=== PATIENT | male | born 1960 | race Caucasian/White ===

== ENCOUNTER 2022-11-22 07:55 | Observation (INO) ==
--- NOTE | 2022-11-02 13:31 | PAT Medication Instructions ---
Medication Instructions Date of Service November 02, 2022 Home Medications fluoxetine 40 mg capsule 40 mg PO QAM meloxicam 15 mg tablet 15 mg PO HS omeprazole 20 mg capsule,delayed release 20 mg PO BID trazodone 150 mg tablet 150 mg PO HS Medical Marijuana 1 dose inhalation UD PRN PAIN baclofen 10 mg tablet 10 mg PO TID buspirone 15 mg tablet 15 mg PO BID celecoxib 100 mg capsule (Celebrex) 100 mg PO QAM gabapentin 600 mg tablet 600 mg PO TID ASK your surgeon for instructions meloxicam 15 mg tablet 15 mg PO HS celecoxib 100 mg capsule (Celebrex) 100 mg PO QAM DO NOT take the morning of surgery Medical Marijuana 1 dose inhalation UD PRN PAIN baclofen 10 mg tablet 10 mg PO TID Take morning of surgery With a small sip of water, OTHERWISE NOTHING TO EAT OR DRINK AFTER MIDNIGHT: fluoxetine 40 mg capsule 40 mg PO QAM omeprazole 20 mg capsule,delayed release 20 mg PO BID buspirone 15 mg tablet 15 mg PO BID gabapentin 600 mg tablet 600 mg PO TID Take evening before surgery omeprazole 20 mg capsule,delayed release 20 mg PO BID trazodone 150 mg tablet 150 mg PO HS Medical Marijuana 1 dose inhalation UD PRN PAIN (if needed) baclofen 10 mg tablet 10 mg PO TID buspirone 15 mg tablet 15 mg PO BID gabapentin 600 mg tablet 600 mg PO TID Other Notes If you have any questions please call us at [phone] or [phone] or [phone] or [phone]
--- NOTE | 2022-11-08 11:33 | History & Physical Report ---
Date of Service November 08, 2022 date of surgery: 11/22/22 Procedure: Right Total Knee Arthroplasty Surgeon: Robert Michelle Assessment & Plan (1) Arthritis of right knee: Plan: Patient presented for preop evaluation prior to right total knee replacement. He has failed conservative measures including previous knee arthroscopy x2 and is also had injections including corticosteroid and he believes possible viscosupplementation at this point time is failed conservative measures like to proceed with right total knee replacement. We will see how he progresses in the hospital we discussed possible rehabilitation stay versus home health physical therapy. In the event that he would go home with stay with his family member as he has several large dogs at home, make things difficult if he were to return home otherwise has no other questions or concerns The risks and benefits have been discussed including, but not limited to, risk of infection, nerve injury, stiffness, loss of motion, failure to improve, etc. Reasonable outcomes and options of treatment were discussed. An explanation of appropriate alternatives to the procedure that may be advantageous were discussed and their risks and benefits, as well as the risks and benefits of not proceeding with treatment. I offered to answer any additional inquiries concerning the treatment involved. All the patient's questions were answered. The patient is agreeable, understanding of the treatment plan and alternatives, and wishes to proceed with the treatment plan. History of Present Illness Chief Complaint: Right knee pain Primary Care Provider: Ramona Morris DO He is a pleasant 62-year-old male who presents for preop evaluation prior to his right total knee replacement, he states that he has been having pain in his knee for many years now which is gradually worsened and is now to the point that is affecting his daily activities including walking standing using stairs. Rates his current pain as a 6 out of 10. Has history of knee arthroscopy x2, he is also undergone viscosupplementation he thinks as well as multiple cortisone in jections without any significant improvement. He also uses Celebrex as needed for pain. This point time is failed conservative measures and like to proceed with a right total knee replacement Allergies Allergy/AdvReac Type Severity Reaction Status Date / Time No Known Allergies Allergy Verified 02/18/20 15:19 Home Medications Medication Instructions Recorded Confirmed Type fluoxetine 40 mg capsule 40 mg PO QAM 02/17/20 11/02/22 History meloxicam 15 mg tablet 15 mg PO HS 02/17/20 11/02/22 History omeprazole 20 mg capsule,delayed 20 mg PO BID 02/17/20 11/02/22 History release trazodone 150 mg tablet 150 mg PO HS 02/18/20 11/02/22 History Medical Marijuana 1 dose inhalation UD PRN PAIN 11/02/22 11/02/22 History baclofen 10 mg tablet 10 mg PO TID 11/02/22 11/02/22 History buspirone 15 mg tablet 15 mg PO BID 11/02/22 11/02/22 History celecoxib 100 mg capsule (Celebrex) 100 mg PO QAM 11/02/22 11/02/22 History gabapentin 600 mg tablet 600 mg PO TID 11/02/22 11/02/22 History fluticasone propionate 50 See Rx Instructions .Route .COMPLEX 11/08/22 11/08/22 History mcg/actuation nasal spray,suspension Past Med/Surg History Medical History Anxiety and depression Degenerative disc disease GERD (gastroesophageal reflux disease) Well controlled and stable Hx of thyroid cancer s/p partial thyroidectomy Neuropathy To hands and feet bilaterally Osteoarthritis Spinal stenosis Surgical History H/O knee surgery RT X 2 History of anesthesia reaction WAS TOLD KEPT WAKING UP DURING SURGERY History of arthroscopy of right shoulder History of colonoscopy History of esophagogastroduodenoscopy (EGD) History of surgery on arm LEFT ARM FOR FX (2 SURGERIES/HARDWARE REMOVED) History of tooth extraction Hx of partial thyroidectomy Family History Other No family history of adverse response to anesthesia Social History Smoking Status: Never smoker Second Hand Exposure: Yes ( A CHILD); Hx Alcohol Use: No Hx Substance Use: Yes (HAS MEDICAL MARIJUANA CARD ) Preferred Language: Tajik Diamond Powder Technician Required: No Beliefs That Will Affect Care: None Current Living Situation: Significant Other Current Living Situation Comment: Lives with girlfriend Melida Feels Safe at Home: Yes Assistive Devices: Glasses Review of Systems Review of Systems: All systems reviewed & are unremarkable except as noted in HPI & below Constitutional: no fever, no chills and no sweats Respiratory: no cough and no dyspnea Cardiovascular: no chest pain, no dyspnea and no orthopnea Gastrointestinal: no abdominal pain, no nausea and no vomiting Musculoskeletal: as per Subjective / HPI Physical Exam Physical Exam: HT: 6ft WT: 101.4kg Constitutional: WD/WN, vitals as above no acute distress Respiratory: normal respiratory effort, lungs clear to auscultation no respiratory distress, no labored breathing and does not use accessory muscles Cardiovascular: RRR, no murmur, no edema Gastrointestinal (Abdomen): normal bowel sounds, soft, nontender, no hepatosplenomegaly Musculoskeletal: Knee: + knee abnormal to inspection (RIGHT KNEE:), + deformity (Valgus alignment), + effusion (+1 effusion), + surgical incision, + limited ROM of knee (ROM 0/3/110), + knee ROM with crepitation, + joint line tenderness (medial joint line) and + Mimi's sign positive; no skin erythema, no ecchymosis, no valgus laxity, no varus laxity, anterior drawer test negative, Areli's sign negative and pivot shift test negative Results & Data Results & Data Diagnostic Findings 4 views of the right knee show advanced degenerative changes to the right knee joint tricompartmentally overall valgus alignment has end-stage DJD with joint space narrowing osteophyte formation subchondral sclerosis, he also has cystic changes within the bone in the proximal tibia
--- NOTE | 2022-11-08 13:19 | Anesthesiology Consultation ---
Date of Service November 08, 2022 Assessment & Plan (1) Encounter for pre-operative examination: Chart Review Chart Review: Acceptable Risk for Surgery and Patient NOT seen in Pre Admission Testing - Pt currently scheduled for 23 hour observation- if surgeon/OR feels this particular TKA procedure is appropriate for OPJ- patient is an acceptable risk Per PAT appt on 11/08/22, patient denies any recent travel or large group activities. Pt is vaccinated for Covid. Will leave to surgeon's discretion if preop Covid testing needed. Educated on importance of using Covid precautions one week prior to surgery Patient seen by PCP 11/03/2022 = no major significant changes. Patient is scheduled for right total knee replacement 11/22/2022. Overall patient is doing fairly well other than his ongoing chronic knee and back pain. No major medication changes at this point. Continue follow up with ortho. Follow-up in 1 year. Teaching & Discussion Pre-Anesthesia Teaching/Discussion Notes: Instructed NPO after midnight before surgery,except medications with 15 cc of water. Medication instructions provided according to the PAT guidelines. History Surgery Operation Date: 11/22/22 12:05 Proposed Procedures p Right Total Knee Arthroplasty with Stems and Wedges and Constrained Poly - Robert Michelle DO Height/Weight Height: 6 ft Weight: 101.4 kg Allergies Allergy/AdvReac Type Severity Reaction Status Date / Time No Known Allergies Allergy Verified 02/18/20 15:19 Medications Home Medications Medication Instructions Recorded Confirmed Last Taken fluoxetine 40 mg capsule 40 mg PO QAM 02/17/20 11/02/22 Unknown meloxicam 15 mg tablet 15 mg PO HS 02/17/20 11/02/22 Unknown omeprazole 20 mg capsule,delayed 20 mg PO BID 02/17/20 11/02/22 Unknown release trazodone 150 mg tablet 150 mg PO HS 02/18/20 11/02/22 Unknown Medical Marijuana 1 dose inhalation UD PRN PAIN 11/02/22 11/02/22 Unknown baclofen 10 mg tablet 10 mg PO TID 11/02/22 11/02/22 Unknown buspirone 15 mg tablet 15 mg PO BID 11/02/22 11/02/22 Unknown celecoxib 100 mg capsule (Celebrex) 100 mg PO QAM 11/02/22 11/02/22 Unknown gabapentin 600 mg tablet 600 mg PO TID 11/02/22 11/02/22 Unknown fluticasone propionate 50 See Rx Instructions .Route .COMPLEX 11/08/22 11/08/22 Unknown mcg/actuation nasal spray,suspension Past Medical History Medical History Anxiety and depression Degenerative disc disease GERD (gastroesophageal reflux disease) Well controlled and stable Hx of thyroid cancer s/p partial thyroidectomy Neuropathy To hands and feet bilaterally Osteoarthritis Spinal stenosis Exercise / Class Metabolic Activity III < 4 Walking/Shop/Light housework (one flight of stairs - no chest pain or SOB - goes slow due to back and knee pain ) Past Family History Family History Other No family history of adverse response to anesthesia Past Surgical History Surgical History H/O knee surgery RT X 2 History of anesthesia reaction WAS TOLD KEPT WAKING UP DURING SURGERY History of arthroscopy of right shoulder History of colonoscopy History of esophagogastroduodenoscopy (EGD) History of surgery on arm LEFT ARM FOR FX (2 SURGERIES/HARDWARE REMOVED) History of tooth extraction Hx of partial thyroidectomy Past Anesthesia History No Hx of Anesthesia Complications (with exception to moving during shoulder surgery - patient denies awareness ) and No Family Hx of Anesthesia Complications History of PONV No Hx of PONV and No Hx of Motion Sickness Social History Smoking Status: Never smoker tobacco type: smokeless tobacco Do You Dip or Chew Tobacco: No (QUIT 20+ YEARS AGO) Hx Alcohol Use: No Hx Substance Use: Yes (HAS MEDICAL MARIJUANA CARD ) substance use type: marijuana Review of Systems Hx of snoring - unsure of apnea- no hx of sleep study Patient denies chest pain, shortness of breath at rest, reflux, cough, wheezing, palpitations. No hx of seizures, stroke, ME. No hx of blood clots or blood transfusions Physical Exam Vital Signs VITALS BP 125/83 P 58 TEMP 98.4 SP02 96% RESP 16 Constitutional no acute distress ENMT Mouth: no TMJ clicking Thyromental Distance: > or= 3.5 Finger Breadths (3.5) Mallampati Class: I Broken molars Neck + limited neck extension and + facial hair (advised to shave/trim) Respiratory normal respiratory effort; no respiratory distress Auscultation: lungs clear to auscultation bilaterally; no wheezes Cardiovascular Rate/Rhythm: regular rate and regular rhythm Heart Sounds: no murmur Vessels: no carotid bruit Musculoskeletal Spine: + pain with cervical ROM Extremities: extremities normal to inspection Psychiatric Orientation: alert Lab Results Anesthesia Preop Results Results Anesthesia Widget: WBC 8.99 K/ul (4.8-10.8) 11/08/22 Hgb 13.7 g/dl (14.0-18.0) L 11/08/22 Hct 40.0 % (42.0-52.0) L 11/08/22 Plt 213 K/uL (130-400) 11/08/22 Na 138 mmol/L (136-145) 11/08/22 K 4.5 mmol/L (3.5-5.1) 11/08/22 Cl 105 mmol/L (98-107) 11/08/22 CO2 31 mmol/L (21-32) 11/08/22 BUN 25 mg/dl (6-23) H 11/08/22 Creat 0.93 mg/dl (0.6-1.4) 11/08/22 Glucose Level 90 mg/dl (70-99(Fasting)) 11/08/22 PT 10.9 Seconds (9.0-12.0) 11/08/22 PTT 27.0 Seconds (21.0-31.0) 11/08/22 INR 1.0 (0.9-1.1) 11/08/22 HA1c 5.6 % (4.5-5.6) 11/08/22 Urine Color Yellow 11/08/22 Urine Appearance Clear (Clear) 11/08/22 Urine pH 7.0 (4.5-7.5) 11/08/22 Urine Specific Dewar 1.024 (1.000-1.030) 11/08/22 Urine Protein Negative (Negative) 11/08/22 Urine Glucose (UA) Negative (Negative) 11/08/22 Urine Ketones Negative (Negative) 11/08/22 Urine Blood Negative (Negative) 11/08/22 Urine Nitrite Negative (Negative) 11/08/22 Urine Bilirubin Negative (Negative) 11/08/22 Urine Urobilinogen Negative (Negative) 11/08/22 Urine Leukocyte Esterase Negative (Negative) 11/08/22 Blood Type A Negative 11/08/22 Antibody Screen NEGATIVE 11/08/22 Testing Electrocardiogram Date: 11/08/22 Findings: + SB @ (53bpm ) Otherwise normal EKG per cardio Chest X-Ray Date: 11/08/22 Findings: + NAD FINDINGS: No pneumothorax. No pleural effusions. The heart is normal in size. There is a mildly tortuous thoracic aorta. No focal lung consolidations to suggest a pneumonia. No evidence for pulmonary edema. There are old, healed lef t-sided rib fractures. Mild anterior wedging within the lower thoracic spine vertebral bodies is likely chronic. There is distal resorption/resection of the left clavicle. COVID-19 Risk Screen Screening Information COVID-19 Screen Date: 11/08/22 Exposure 21 Days Family/Household +COVID Last 21 Days: No Exposure 10 Days Any COVID Exposure Last 10 Days: No Symptoms Last 10 Days Experienced COVID Sx Last 10 Days: No + COVID 0-90 Days COVID + in Last 0-90 Days: No Risk Plan COVID Risk Plan: No Risk Identified Patient Education COVID Preop Screening Education Complete: Yes
[~2022-11-22 07:55] MED LIST: ACETAMINOPHEN 500 MG TAB PO SCH; BUPIVACAINE 0.5 % 5 MG/1 ML PF 10ML VIAL ONE; CeleBREX 200 MG CAP PO SCH; DEXAMETHASONE SOD INJ 4 MG/ML VIAL ONE; FAMOTIDINE 20 MG TAB PO SCH; GABAPENTIN 600 MG DOSE PO SCH; LR 500ML BOLUS, THEN 15ML/HR IV SCH; METOCLOPRAMIDE HCL 10 MG TABLET PO SCH; ROPIVACAINE 0.5% 5 MG/ML 30 ML VIAL ONE; ROPIVACAINE 0.5% HCL/PF 150 MG, BUPIVACAINE 0.75% MPF 20 ML, EPINEPHrine 30MG/30ML (OR ... INSTIL SCH; TRANEXAMIC ACID 1,000 MG **IV Intra-op IV SCH; TRANEXAMIC ACID 1,000 MG **IV Pre-op IV SCH; ceFAZolin 2000MG 2,000 MG/15 ML SYR IV SCH; dexAMETHasone 4 MG TAB PO SCH
--- NOTE | 2022-11-22 08:47 | History & Physical Bridge Note ---
Date of Service November 22, 2022 History & Physical Bridge Note I have examined the patient, reviewed the History & Physical and in the interval since the performance of the History & Physical I have noted the following changes of clinical significance: no changes noted
[2022-11-22] MEDS ORDERED: ePHEDrine sulfate 50 MG/ML AMP IV PRN (09:15)
[2022-11-22] MEDS ORDERED: ATROPINE SULFATE 0.1 MG/ML 10ML SYR IV PRN (09:15)
[2022-11-22] MEDS ORDERED: ONDANSETRON INJ 2 MG/ML 2 ML VIAL IV PRN ×2 (09:15→14:55)
[2022-11-22] MEDS ORDERED: HYDROmorphone INJ 2 MG/ML SYR/VIAL IV PRN (09:15)
[2022-11-22] MEDS ORDERED: ONDANSETRON INJ 2 MG/ML 2 ML VIAL ONE (09:27)
[2022-11-22] MEDS ORDERED: LIDOCAINE 2% 2 ML VIAL/AMP(20MG/ML) INFIL ONE (09:27)
[2022-11-22] MEDS ORDERED: PROPOFOL IV EMULSION 10 MG/ML 20 ML VIAL IV ONE ×4 (09:27→13:14)
[2022-11-22] MEDS ORDERED: MIDAZOLAM HCL 1 MG/ML 2ML VIAL ONE ×2 (09:27→11:52)
[2022-11-22] MEDS ORDERED: ORTHO JOINT ANESTHETIC ONE (10:49)
[2022-11-22] MEDS ORDERED: KETAMINE 50 MG/5 ML SYRINGE ONE (11:46)
--- NOTE | 2022-11-22 13:10 | Operative Report ---
Post Operative Report Pre & Post Diagnosis Operation Date: 11/22/22 10:00 Pre-Op Diagnosis: Right knee osteoarthritis. Post-Op Diagnosis: Right knee osteoarthritis. I identified the patient and participated in the time-out.: Yes Procedure Operation Date: 11/22/22 10:00 Actual Procedures p Right Total Knee Arthroplasty utilizing [employer] journey 2 patient matched total knee arthroplasty with a 16 x 100 mm tibial stem femur size 7 tibia size 7 poly 11 mm constrained patella 35 oval (Right) - Robert Michelle DO Surgeon Robert Michelle DO Anthropological Linguist Gavino FONTANA Estimated Blood Loss 5 Findings Consistent with Post-Op Diagnosis Patient presents with severe end-stage DJD with a severe valgus alignment with large subchondral cystic changes osteophytes and valgus alignment with eburnated [id number] tricompartmentally Specimens Bone and cartilage Drains Medium bore Hemovac Anesthesia Type MAC Spinal Regional Complications none Disposition Accompanied Patient To Recovery: No Disposition: Recovery Room Indications Patient presents with severe end-stage tricompartmental DJD of the right knee no response to conservative management with marked malalignment eburnated bone bone loss tibial bone loss significant subchondral cystic changes Description of Procedure After proper prepping and draping of the Right lower extremity anterior midline incision was made over the region of the extensor extensor mechanism after meticulous hemostasis was obtained and maintained in subcutaneous tissues a medial parapatellar incision was made The patella was subluxed lateralward the medial lateral gutter were cleaned from any hypertrophic synovitis and scar tissue of the distal femoral block was placed and the distal femoral osteotomy cut was made subsequently the chamfers anterior and posterior osteotomy cuts were made utilizing the 4-in-1 block the tibia was subsequently subluxed anteriorward medial and ateral meniscal remnants were excised in their entirety remnants of the anterior and posterior cruciate ligaments were excised in their entirety there were large subchondral cystic changes which were cyst were all removed the this necessitates the presence of 100 mm press-fit stem reamed to a size 16 so while preparing the proximal tibia after proper osteotomy cut the proximal tibia was prepared 100 mm x 16 stem was fixed to the final component after trialing and was press-fit tibial stem with a standard journey tibial plateDue to the complex nature of the procedure, the entire surgery was performed with the operational assistance of [PAC Name]. The property management assistant, under direct supervision, was involved in the actual performance of all aspects of the surgical procedure including hemostasis, tissue retraction and incision, instrument management, patient positioning, and wound closure. excellent exposure of the proximal tibia was obtained the tibial osteotomy guide was placed on the proximal tibial osteotomy cut was made once again the knee was irrigated with copious amounts of sterile saline solution the patella was subsequently everted lateralward thickened scar tissue around the patella was removed the patella was subsequently cut utilizing a freehand technique and was drilled prepared for final preparation and placement of patella socially flexion-extension gaps were checked and the equal and symmetric trials were placed to the appropriate femoral and tibial trials with poly-spacer being placed for equal flexion and extension gaps and full range of motion including extension to 0 and flexion to 140 the trial components after having been taken to recovery range of motion was subsequently removed meticulous hemostasis was obtained and maintained subsequently a knee block injection of joint cocktail including ropivacaine 0.5% 150 mg. Bupivacaine 0.5% epinephrine 1-200,030 mL's toradol 30 mg dexamethasone 4 mg ketamine 10 mg clonidine 100 micrograms normal saline solution 30 mg was infiltrated into the soft tissues of the posterior knee medial lateral gutters and periosteal synovium special attention was paid to protect neurovascular structures at all times subsequently trial components having been removed the knee was irrigated with sterile saline solution. debris was removed the proximal tibia was subsequently prepared and was made ready for the placement of the tibial component tibial component was also cemented and tamped into position the femoral component was subsequently placed and cemented in the position the patellar component was subsequently cemented in position because hemostasis once again obtained and maintained wound having been thoroughly irrigated with debridement and debridement lavage was performed as well as a medial parapatellar incision closed with #1 Vicryl in interrupted fashion subcutaneous was closed with #2 Vicryl skin was closed with skin clips. Gavino FONTANA PA-C was necessary for prepping and drapping as well as wound closure of deep fascia Sub cutaneous tissue and skin and was necessary for the case. A sterile compressive dressing was placed patient was taken to recovery in stable condition of report dictated by Miguel Angel I attest to the content of the Intraoperative Record and any orders documented therein. Any exceptions are noted below. I attest to the content of the Intraoperative Record and any orders documented therein. Any exceptions are noted below.
--- NOTE | 2022-11-22 14:07 | XRay Report ---
XR knee RT 1 or 2V routine CLINICAL HISTORY: Surgical Post Op TECHNIQUE: 2 views of the right knee were obtained. Comparison: None available at the time of this dictation. FINDINGS: Patient is status post total knee arthroplasty with expected postsurgical changes including soft tiss ue swelling and subcutaneous emphysema. No periarticular lucency or hardware fracture is seen. IMPRESSION: Expected postoperative appearance status post placement of total knee arthroplasty. ACT 112: Negative or not required by law. Electronically signed by: Saturnino Neff M.D. 11/22/2022 2:05 PM
--- NOTE | 2022-11-22 14:08 | Anesthesiology Progress Note ---
Date of Service November 22, 2022 Anesthesia Post Procedure Vital Signs Vital Signs: Temp Pulse Resp BP Pulse Ox O2 Del Method O2 Flow Rate 11/22/22 13:55 77 20 139/88 92 Room Air 11/22/22 13:45 36.6 C 77 18 130/77 99 Oxymask 5 Pain Intensity Right Knee: Pain Intensity: 2 Transfer of Care Handoff Completed per policy Notes Mental Status: alert / awake / arousable and participated in evaluation Nausea / Vomiting: adequately controlled Pain: adequately controlled Airway Patency, RR, SpO2: stable & adequate BP & HR: stable & adequate Hydration State: stable & adequate Neuraxial Anesthesia: was administered and sensory block is resolving Anesthetic Complications: no major complications apparent and Pt Satisfied with anesthetic care
[2022-11-22] MEDS ORDERED: diphenhydrAMINE 50 MG/ML VIAL IV PRN (14:55)
[2022-11-22] MEDS ORDERED: SODIUM CHLORIDE 0.9% 1000ML 1,000 ML IV SCH (14:55)
[2022-11-22] MEDS ORDERED: MAGNESIUM HYDROXIDE SUSP 30 ML UDC PO PRN (14:55)
[2022-11-22] MEDS ORDERED: HYDROmorphone INJ 0.5 MG/0.5 ML SYR IV PRN (14:55)
[2022-11-22] MEDS ORDERED: NALOXONE HCL 0.4 MG/1 ML VIAL/CARP IV PRN (14:55)
[2022-11-22] MEDS ORDERED: bisacodyL 10 MG SUPP PR PRN (14:55)
[2022-11-22] MEDS: ACETAMINOPHEN 500 MG TAB PO SCH ×2 (15:37→22:19)
[2022-11-22] MEDS: GABAPENTIN 600 MG TAB PO SCH ×2 (15:37→20:19)
[2022-11-22] MEDS: BACLOFEN 10 MG TAB PO SCH ×2 (15:37→20:19)
[2022-11-22] MEDS: oxyCODONE HCL IR 5 MG TAB (IMMEDIATE RELEASE) PO PRN (18:36)
[2022-11-22] MEDS: ceFAZolin 2000MG 2,000 MG/15 ML SYR IV SCH (20:18)
[2022-11-22] MEDS: busPIRone 15 MG TAB PO SCH (20:19)
[2022-11-22] MEDS: ASPIRIN 81 MG ECTAB PO SCH (20:20)
[2022-11-22] MEDS: DOCUSATE SODIUM 100 MG CAP PO SCH (20:20)
[2022-11-22] MEDS ORDERED: SENNA 8.6 MG TAB PO SCH (21:00)
[2022-11-22] MEDS ORDERED: traZODone HCL 50 MG TAB PO SCH (21:00)
[2022-11-23] MEDS: ACETAMINOPHEN 500 MG TAB PO SCH ×2 (05:40→13:36)
[2022-11-23] MEDS: ceFAZolin 2000MG 2,000 MG/15 ML SYR IV SCH (05:40)
[2022-11-23 06:19] LABS: Hematocrit (blood only) 35.8 % (42.0-52.0); Hemoglobin 12.3 g/dl (14.0-18.0); Mean Corpuscular Hemoglobin 31.5 pg (25.0-34.0); Mean Corpuscular Hgb Conc 34.4 g/dL (32.0-36.0); Mean Corpuscular Volume 91.6 fL (80.0-100.0); Mean Platelet Volume 9.9 fL (9.4-12.4); Platelet Count 182 K/uL (130-400); RDW Coefficient of Variation 14.5 % (11.5-14.5); RDW Standard Deviation 48.6 fL (36.4-46.3); Red Blood Count 3.91 M/uL (4.70-6.10); White Blood Count 17.32 K/ul (4.8-10.8)
[2022-11-23 06:34] LABS: BUN Creatinine Ratio 21.9 (10-20); Calcium 8.7 mg/dl (8.6-10.3); Est GFR (African American) 96.4 ml/min; Est GFR (Non-African American) 83.2 ml/min; Potassium 4.2 mmol/L (3.5-5.1)
[2022-11-23] MEDS: busPIRone 15 MG TAB PO SCH (07:53)
[2022-11-23] MEDS: BACLOFEN 10 MG TAB PO SCH ×2 (07:53→13:36)
[2022-11-23] MEDS: DOCUSATE SODIUM 100 MG CAP PO SCH (07:54)
[2022-11-23] MEDS: GABAPENTIN 600 MG TAB PO SCH ×2 (07:54→13:36)
[2022-11-23] MEDS: ASPIRIN 81 MG ECTAB PO SCH (07:54)
[2022-11-23] MEDS ORDERED: MULTIVITAMIN TAB PO SCH (09:00)
[2022-11-23] MEDS ORDERED: FLUTICASONE PROPIONATE NA SPR 16 GM BTL SCH (09:00)
[2022-11-23] MEDS ORDERED: FLUoxetine HCL 20 MG CAP PO SCH (09:00)
[2022-11-23] MEDS ORDERED: PANTOprazole 40 MG TAB PO SCH (09:00)
--- NOTE | 2022-11-23 09:44 | Orthopedic Progress Note ---
Date of Service November 23, 2022 Assessment & Plan (1) Arthritis of right knee: Plan: Postop day 1 status post right total knee arthroplasty PT/OT protocols. Weightbearing as tolerated. DVT prophylaxis-aspirin p.o. twice daily, SCDs, GANGA jain. Pain management as written Leukocytosis-likely secondary from surgical stress and/or preoperative steroids. Patient continues to remain asymptomatic. DC planning-patient is planning for home health services upon discharge. He will be residing at his sisters home where everything is on one level and she also has a walk-in shower. Admission and Anticipated Discharge Date Admission Date: November 22, 2022 Subjective Postop day 1 Patient sitting in his chair at the bedside. Pain is controlled. He has no complaints. Denies shortness of breath, chest pain, lightheadedness. He states that he has been up to the bathroom several times. He is hoping to go home today. Physical Exam Physical Exam: Dressings are clean, dry, and intact. Calves are soft nontender. Neurovascular intact. Toes are mobile. He has good dorsiflexion and plantarflexion of the right foot. Hemovac drainage was 250 cc from the previous shift. Results & Data Vital Signs (Past 12 Hours) Vital Signs Temp Pulse Resp BP Pulse Ox O2 Del Method 11/23/22 06:25 36.9 C 62 16 155/88 H 95 Room Air 11/23/22 02:50 36.8 C 59 L 16 126/81 98 Room Air 11/22/22 22:31 36.9 C 55 L 18 132/82 97 Room Air Laboratory Results Laboratory Results WBC 17.32 K/ul (4.8-10.8) H 11/23/22 05:47 RBC 3.91 M/uL (4.70-6.10) L 11/23/22 05:47 Hgb 12.3 g/dl (14.0-18.0) L 11/23/22 05:47 Hct 35.8 % (42.0-52.0) L 11/23/22 05:47 MCV 91.6 fL (80.0-100.0) 11/23/22 05:47 MCH 31.5 pg (25.0-34.0) 11/23/22 05:47 MCHC 34.4 g/dL (32.0-36.0) 11/23/22 05:47 RDW Std Deviation 48.6 fL (36.4-46.3) H 11/23/22 05:47 RDW Coeff of Bethany 14.5 % (11.5-14.5) 11/23/22 05:47 Plt Count 182 K/uL (130-400) 11/23/22 05:47 MPV 9.9 fL (9.4-12.4) 11/23/22 05:47 Sodium 138 mmol/L (136-145) 11/23/22 05:47 Potassium 4.2 mmol/L (3.5-5.1) 11/23/22 05:47 Chloride 106 mmol/L (98-107) 11/23/22 05:47 Carbon Dioxide 28 mmol/L (21-32) 11/23/22 05:47 Anion Gap 4 (3-11) 11/23/22 05:47 BUN 21 mg/dl (6-23) 11/23/22 05:47 Creatinine 0.96 mg/dl (0.6-1.4) 11/23/22 05:47 Est Cr Clr Drug Dosing 94.0 ml/min 11/23/22 05:47 Est GFR ( Amer) 96.4 ml/min 11/23/22 05:47 Est GFR (Non-Af Amer) 83.2 ml/min 11/23/22 05:47 BUN/Creatinine Ratio 21.9 (10-20) H 11/23/22 05:47 Glucose 103 mg/dl (70-99(Fasting)) H 11/23/22 05:47 Calcium 8.7 mg/dl (8.6-10.3) 11/23/22 05:47 SARS-CoV-2, RNA, NAAT NEGATIVE (NEGATIVE) 11/22/22 Unknown Impressions Knee X-Ray 11/22/22 13:51 XR knee RT 1 or 2V routine CLINICAL HISTORY: Surgical Post Op TECHNIQUE: 2 views of the right knee were obtained. Comparison: None available at the time of this dictation. FINDINGS: Patient is status post total knee arthroplasty with expected postsurgical changes including soft tissue swelling and subcutaneous emphysema. No periarticular lucency or hardware fracture is seen. IMPRESSION: Expected postoperative appearance status post placement of total knee arthroplasty. ACT 112: Negative or not required by law. Electronically signed by: Saturnino Neff M.D. 11/22/2022 2:05 PM
[2022-11-23] MEDS: oxyCODONE HCL IR 5 MG TAB (IMMEDIATE RELEASE) PO PRN (11:31)
--- NOTE | 2022-11-23 11:43 | Discharge Summary ---
Date of Service November 23, 2022 Admission HPI Per Admitting Provider He is a pleasant 62-year-old male who presents for preop evaluation prior to his right total knee replacement, he states that he has been having pain in his knee for many years now which is gradually worsened and is now to the point that is affecting his daily activities including walking standing using stairs. Rates his current pain as a 6 out of 10. Has history of knee arthroscopy x2, he is also undergone viscosupplementation he thinks as well as multiple cortisone injections without any significant improvement. He also uses Celebrex as needed for pain. This point time is failed conservative measures and like to proceed with a right total knee replacement Admission Exam Per Admitting Provider Physical Exam: HT: 6ft WT: 101.4kg Constitutional: WD/WN, vitals as above no acute distress Respiratory: normal respiratory effort, lungs clear to auscultation no respiratory distress, no labored breathing and does not use accessory muscles Cardiovascular: RRR, no murmur, no edema Gastrointestinal (Abdomen): normal bowel sounds, soft, nontender, no hepatosplenomegaly Musculoskeletal: Knee: + knee abnormal to inspection (RIGHT KNEE:), + deformity (Valgus alignment), + effusion (+1 effusion), + surgical incision, + limited ROM of knee (ROM 0/3/110), + knee ROM with crepitation, + joint line tenderness (medial joint line) and + Mimi's sign positive; no skin erythema, no ecchymosis, no valgus laxity, no varus laxity, anterior drawer test negative, Areli's sign negative and pivot shift test negative Principal Diagnosis Right Knee Osteoarthritis Discharge Data Allergies Allergy/AdvReac Type Severity Reaction Status Date / Time No Known Allergies Allergy Verified 11/22/22 08:38 Procedures Performed Operation Date: 11/22/22 10:00 Actual Procedures p Right Total Knee Arthroplasty with Stems and Wedges and Constrained Poly(Right) - Robert Michelle DO Ordered Studies 11/22/22 05:00 US - OR guided needle placemen Routine Hospital Course (1) Arthritis of right knee: Patient:MARTINEZ JUARES Admit Date:11/22/22 MR#:[id number] Att Phy:Robert Michelle,D.O. Acct ID:[id number] Danika Phy:Ramona Morris DO Date:1960 [facility] Phy: Age:62 Location:3E Sex:M Room/Bed:[facility] cc: ~ *NOTICE TO RECEIVING REPUBLICAN/AGENCY This information is strictly Confidential and protected under [place] law. [place] law prohibits you from making any further disclosure of this information unless further disclosure is expressly permitted by the written consent of the person to whom it pertains or is authorized by law. A general authorization for the release of medical or other information is not sufficient for this purpose. Hospital accepts no responsibility if the information is made available to any other person, INCLUDING THE PATIENT. Date of Service November 23, 2022 Assessment & Plan (1) Arthritis of right knee: Plan: Postop day 1 status post right total knee arthroplasty PT/OT protocols. Weightbearing as tolerated. DVT prophylaxis-aspirin p.o. twice daily, SCDs, GANGA jain. Pain management as written Leukocytosis-likely secondary from surgical stress and/or preoperative steroids. Patient continues to remain asymptomatic. DC planning-patient is planning for home health services upon discharge. He will be residing at his sisters home where everything is on one level and she also has a walk-in shower. Admission and Anticipated Discharge Date Admission Date: November 22, 2022 Subjective Postop day 1 Patient sitting in his chair at the bedside. Pain is controlled. He has no complaints. Denies shortness of breath, chest pain, lightheadedness. He states that he has been up to the bathroom several times. He is hoping to go home today. Physical Exam Physical Exam: Dressings are clean, dry, and intact. Calves are soft nontender. Neurovascular intact. Toes are mobile. He has good dorsiflexion and plantarflexion of the right foot. Hemovac drainage was 250 cc from the previous shift. Results & Data Vital Signs (Past 12 Hours) Vital Signs Temp Pulse Resp BP Pulse Ox O2 Del Method 11/23/22 06:25 36.9 C 62 16 155/88 H 95 Room Air 11/23/22 02:50 36.8 C 59 L 16 126/81 98 Room Air 11/22/22 22:31 36.9 C 55 L 18 132/82 97 Room Air Laboratory Results Laboratory Results WBC 17.32 K/ul (4.8-10.8) H 11/23/22 05:47 RBC 3.91 M/uL (4.70-6.10) L 11/23/22 05:47 Hgb 12.3 g/dl (14.0-18.0) L 11/23/22 05:47 Hct 35.8 % (42.0-52.0) L 11/23/22 05:47 MCV 91.6 fL (80.0-100.0) 11/23/22 05:47 MCH 31.5 pg (25.0-34.0) 11/23/22 05:47 MCHC 34.4 g/dL (32.0-36.0) 11/23/22 05:47 RDW Std Deviation 48.6 fL (36.4-46.3) H 11/23/22 05:47 RDW Coeff of Bethany 14.5 % (11.5-14.5) 11/23/22 05:47 Plt Count 182 K/uL (130-400) 11/23/22 05:47 D MPV 9.9 fL (9.4-12.4) 11/23/22 05:47 Sodium 138 mmol/L (136-145) 11/23/22 05:47 Potassium 4.2 mmol/L (3.5-5.1) 11/23/22 05:47 Chloride 106 mmol/L (98-107) 11/23/22 05:47 Carbon Dioxide 28 mmol/L (21-32) 11/23/22 05:47 Anion Gap 4 (3-11) 11/23/22 05:47 BUN 21 mg/dl (6-23) 11/23/22 05:47 Creatinine 0.96 mg/dl (0.6-1.4) 11/23/22 05:47 Est Cr Clr Drug Dosing 94.0 ml/min 11/23/22 05:47 Est GFR ( Amer) 96.4 ml/min 11/23/22 05:47 Est GFR (Non-Af Amer) 83.2 ml/min 11/23/22 05:47 BUN/Creatinine Ratio 21.9 (10-20) H 11/23/22 05:47 Glucose 103 mg/dl (70-99(Fasting)) H 11/23/22 05:47 Calcium 8.7 mg/dl (8.6-10.3) 11/23/22 05:47 SARS-CoV-2, RNA, NAAT NEGATIVE (NEGATIVE) 11/22/22 Unknown Impressions Knee X-Ray 11/22/22 13:51 XR knee RT 1 or 2V routine CLINICAL HISTORY: Surgical Post Op TECHNIQUE: 2 views of the right knee were obtained. Comparison: None available at the time of this dictation. FINDINGS: Patient is status post total knee arthroplasty with expected postsurgical changes including soft tissue swelling and subcutaneous emphysema. No periarticular lucency or hardware fracture is seen. IMPRESSION: Expected postoperative appearance status post placement of total knee arthroplasty. ACT 112: Negative or not required by law. Electronically signed by: Saturnino Neff M.D. 11/22/2022 2:05 PM Signed By: <Electronically signed by Gavino Marquez PA-C> 11/23/22 0944 Total Time Total Time Spent Total Time Spent (In Minutes): 5 Discharge Plan Discharge Items Patient Disposition: Home - Home Health Services Reason For Visit: Right Knee Osteoarthritis Discharge Diagnosis: Right Knee Osteoarthritis Activity: Per Instructions section Weightbearing: Right weightbearing Weightbearing Comment: as tolerated with walker Non-emergency contact: Surgeon Call non-emergency contact if: you have any medication questions, your pain is not controlled, your temperature is above 101.5, your wound has increased redness and your wound has increased drainage Follow-up/Referrals: Robert Michelle DO [Surgeon] - (Follow up with Dr Michelle or his PA in 2 weeks from the day of surgery for your first post operative visit.) Ramona Morris DO [Primary Care Provider] - Diet: Regular Addtl Attending Provider Instructions: ACTIVITY RECOMMENDATIONS: SELF CARE INSTRUCTIONS AFTER TOTAL KNEE REPLACEMENT A. You may need to continue a physical therapy program after discharge from the hospital. There are several options available to you. Your doctor will assist you in selecting the best one for you. 1. An out-patient facility 2 to 3 times a week for therapy or home therapy. 2. Continue working on all exercises taught to you in the hospital. Your goals should be to increase bending of your knee to 90 degrees and beyond and to fully straighten your knee. B. You may progress at your own pace from walking with a walker or crutches to a cane; then to no assistive devices. C. Make walking a part of your daily routine. Be up as much as comfortable with rest periods throughout the day. Rest with leg elevation is very important. Use the ice wrap frequently for the first 3-4 weeks. D. There are no restrictions on activities. You may ride in a car, shop, participate in physicist acoustics and all social activities. E. Wear the long elastic stockings (GANGA hose) 20 hours a day for 2 weeks after surgery. They can be removed several times a day for laundering and for a bath. F. You may shower, no tub baths until cleared by your doctor. SPECIAL CARE INSTRUCTIONS: VERY IMPORTANT TO READ AND REVIEW A. There are a few signs you need to watch for after you are home. Call [facility] if you notice any of the followin. Increased severe knee pain. Some pain is expected especially when you exercise. 2. Increased swelling in your leg or knee; pain or swelling of the calf muscle in either lower leg. 3. Any fluid drainage from the incision. 4. Shortness of breath or chest pain. B. Please call [facility] at if you have any concerns or questions about your operation or recovery. The doctor or his nurse will return your call promptly. C. You must take antibiotics before dental work, bladder, bowel or other surgery. Your doctor will provide you with a permanent care to carry describing this precaution. IMPORTANT: * REMEMBER TO TAKE ASPIRIN, 81 MG, TWICE DAILY FOR 4 WEEKS UNLESS OTHERWISE DIRECTED. THIS IS YOUR BLOOD THINNER. * HIGH RISK PATIENTS MAY BE PRESCRIBED A STRONGER BLOOD THINNER. THIS WILL BE PROVIDED AT DISCHARGE. * CALL IF INCREASED PAIN, REDNESS, DRAINAGE OR FEVER GREATER THAT 101. * WEAR GANGA HOSE 20 HOURS PER DAY FOR 2 WEEKS. * ROMEO Dressing - This is a large suction dressing covering your incision. This will help pull any excess drainage from the wound and allow your incision to heal properly. You may shower with this if you can keep the unit outside of the shower. If any bleeding or leakage is noted please call your doctor's office. This will remain on your incision for 7 days and then should be removed. This can be done yourself or by the home nursing staff if applicable. The entire unit is disposable once removed. Once removed, keep incision clean and dry. If redness or drainage is noted, please call your surgeon. . FOLLOW UP VISIT: If appointment is not already scheduled: Please call [facility] to make a follow-up appointment for 2 weeks after your surgery at . Stand-Alone Forms: My [facility], Smoking Cessation Medications and DC Order Prescriptions: New acetaminophen [Tylenol Extra Strength] 500 mg Tablet 1,000 mg PO Q8 14 Days Qty: 84 0RF aspirin 81 mg Tablet,Delayed Release (Dr/Ec) 81 mg PO BID 30 Days Qty: 60 0RF polyethylene glycol 3350 [Miralax] 17 gram powder in packet 17 g PO DAILY PRN (Reason: constipation) Qty: 5 0RF cefadroxil 500 mg capsule 500 mg PO BID Qty: 28 1RF oxycodone 5 mg tablet 5 mg PO Q4H MDD 6 PRN (Reason: pain) Qty: 30 0RF Continued fluoxetine 40 mg Capsule 40 mg PO QAM omeprazole 20 mg Capsule,Delayed Release(Dr/Ec) 20 mg PO BID trazodone 150 mg Tablet 150 mg PO HS Rx Instructions: plus 50 mg PRN for sleep gabapentin 600 mg Tablet 600 mg PO TID baclofen 10 mg Tablet 10 mg PO TID celecoxib [Celebrex] 100 mg Capsule 100 mg PO QAM buspirone 15 mg Tablet 15 mg PO BID fluticasone propionate 50 mcg/actuation [place],Suspension See Rx Instructions .ROUTE .COMPLEX Rx Instructions: 2 sprays each nostril q AM Held meloxicam 15 mg Tablet 15 mg PO HS Hold Instructions: Hold Meloxicam until you are done taking your Aspirin twice daily for one month Medical Marijuana 1 dose inhalation UD PRN (Reason: PAIN) Hold Instructions: Please hold from taking this medication until you are done using narcotic pain medication. Yanetmes/Other Patient Handouts: Hemovac Drain Tube Dc Admission Data Admit Date/Time: 11/22/22 13:51 Attending Provider: Robert Michelle Admit Provider: Robert Michelle Primary Care Provider: Ramona Morris Other Interventions: Discharge Summary Assessment (RN) Last Done: 11/23/22 11:37
== END 2022-11-23 16:18 | disposition home health service (06) ==
LOC: ASU 07:55 → 3E 07:55